=== PATIENT | male | born 1980 | race Caucasian/White ===

== ENCOUNTER 2017-02-12 16:28 | Emergency (ER) | payer SELFPAY ==
[2017-02-12 20:44] LABS: PLATELET COUNT 274 x10^3mcL (130-400); RED CELL DISTRIBUTION WIDTH 13.1 % (11.5-14.5)
[2017-02-12 20:53] LABS: CARBON DIOXIDE 23.9 mmol/L (21-32)
[2017-02-12 21:08] LABS: POTASSIUM SERUM 4.3 mmol/L (3.5-5.1)
[2017-02-12 21:50] LABS: microscopic required? YES; urine erythrocyte 2+ (NEGATIVE)
[2017-02-13 01:35] VITALS: BP 148/96
== END 2017-02-13 01:35 | disposition home or self-care (01) ==
LOC: ED 16:28
PROVIDERS: Emergency Medicine
DX: E11.65 Type 2 diabetes mellitus with hyperglycemia (principal); I10 Essential (primary) hypertension; R07.89 Other chest pain; R05 Cough; M54.5 Low back pain
CPT/HCPCS: 82962; 83880; J1885; J2405; J7030; Q0092

== ENCOUNTER 2018-08-19 19:00 | Emergency (ER) | payer SELFPAY ==
[~2018-08-19] VITALS: Ht 188 cm; Wt 134.3 kg
[2018-08-19 19:05] VITALS: Ht 188 cm; Wt 134.3 kg
[2018-08-19 20:57] VITALS: BP 141/75
== END 2018-08-19 20:57 | disposition home or self-care (01) ==
LOC: ED 19:00
DX: S93.402A Sprain of unspecified ligament of left ankle, initial encounter (principal); X58.XXXA Exposure to other specified factors, initial encounter; Y93.89 Activity, other specified; Y92.89 Other specified places as the place of occurrence of the external cause; Y99.8 Other external cause status
CPT/HCPCS: Q0092

== ENCOUNTER 2018-10-31 23:48 | Emergency (ER) | payer SELFPAY ==
[~2018-10-31] VITALS: Ht 188 cm; Wt 137.4 kg
[2018-10-31 23:52] VITALS: Ht 188 cm; Wt 137.4 kg
[2018-11-01 00:45] LABS: BASOPHIL % 0.4 % (0-2); PLATELET COUNT 286 x10^3mcL (130-400); RED CELL DISTRIBUTION WIDTH 13.7 % (11.5-14.5)
[2018-11-01 00:55] LABS: CALCIUM 9.4 mg/dL (8.5-10.1); CARBON DIOXIDE 24.6 mmol/L (21-32); CHLORIDE SERUM 103 mmol/L (98-107); CREATININE SERUM 0.8 mg/dL (0.7-1.3); GFR1 > 60 mL/min; GLUCOSE SERUM 206 mg/dL (74-106); POTASSIUM SERUM 3.7 mmol/L (3.5-5.1); SODIUM SERUM 140 mmol/L (136-145)
[2018-11-01 01:00] LABS: ALBUMIN 3.6 g/dL (3.4-5.0); ALKALINE PHOSPHATASE 100 U/L (46-116); ALT/SGPT 24 U/L (16-63); AST/SGOT 11 U/L (15-37); BILIRUBIN TOTAL 0.16 mg/dL (0.20-1.00); TOTAL PROTEIN, SERUM 7.6 g/dL (6.4-8.2); URIC ACID 4.6 mg/dL (3.5-7.2)
[2018-11-01 01:23] VITALS: BP 135/93
== END 2018-11-01 01:23 | disposition home or self-care (01) ==
LOC: ED 23:48
PROVIDERS: Emergency Medicine
DX: M10.9 Gout, unspecified (principal); I10 Essential (primary) hypertension; E11.9 Type 2 diabetes mellitus without complications
CPT/HCPCS: 36415; J1100; J1885

== ENCOUNTER 2018-12-05 11:18 | Emergency (ER) | payer SELFPAY ==
[~2018-12-05] VITALS: Ht 188 cm; Wt 137.0 kg
[2018-12-05 11:22] VITALS: Ht 188 cm; Wt 137.0 kg
[2018-12-05 13:31] VITALS: BP 169/94
== END 2018-12-05 13:31 | disposition home or self-care (01) ==
LOC: ED 11:18
DX: G43.909 Migraine, unspecified, not intractable, without status migrainosus (principal); I10 Essential (primary) hypertension; E11.9 Type 2 diabetes mellitus without complications
CPT/HCPCS: J1885; J2765; Q0162

== ENCOUNTER 2019-10-13 10:23 | Emergency (ER) | payer SELFPAY ==
[~2019-10-13] VITALS: Ht 188 cm; Wt 127.0 kg
[2019-10-13 10:38] VITALS: Ht 188 cm; Wt 127.0 kg
[2019-10-13 11:05] LABS: microscopic required? NO
[2019-10-13 11:14] LABS: CALCIUM 7.5 mg/dL (8.5-10.1); CARBON DIOXIDE 23.4 mmol/L (21-32); CHLORIDE SERUM 98 mmol/L (98-107); CREATININE SERUM 0.9 mg/dL (0.7-1.3); GFR1 > 60 mL/min; GLUCOSE SERUM 415 mg/dL (74-106); SODIUM SERUM 133 mmol/L (136-145)
[2019-10-13 11:27] LABS: ALKALINE PHOSPHATASE 133 U/L (46-116); BILIRUBIN TOTAL 0.6 mg/dL (0.20-1.00); LIPASE 205 IU/L (73-393); MAGNESIUM 1.9 mg/dL (1.8-2.4); T4(THYROXINE) 8.9 ug/dL (4.7-13.3)
[2019-10-13 11:29] LABS: ALBUMIN 3.3 g/dL (3.4-5.0)
[2019-10-13 11:30] LABS: CHOLESTEROL 297 mg/dL (<200); HDL CHOLESTEROL 27 mg/dL (40-60)
[2019-10-13 11:38] LABS: BASOPHIL % 0.4 % (0-2); PLATELET COUNT 282 x10^3mcL (130-400)
[2019-10-13 12:35] LABS: urine erythrocyte NEGATIVE (NEGATIVE)
[2019-10-13 13:39] LABS: AMPHETAMINE QUAL UR NONE DETECTED (See below)
[2019-10-13 14:14] VITALS: BP 135/85
[2019-10-13 14:36] LABS: TOTAL PROTEIN, SERUM 7.1 g/dL (6.4-8.2)
[2019-10-13 15:21] LABS: AST/SGOT 26 U/L (15-37)
[2019-10-13 15:53] LABS: ALT/SGPT 104 U/L (16-63)
== END 2019-10-13 14:14 | disposition home or self-care (01) ==
LOC: ED 10:23
PROVIDERS: Emergency Medicine
DX: F12.20 Cannabis dependence, uncomplicated (principal); E66.9 Obesity, unspecified; I10 Essential (primary) hypertension; E11.9 Type 2 diabetes mellitus without complications; G43.909 Migraine, unspecified, not intractable, without status migrainosus; Z68.35 Body mass index [BMI] 35.0-35.9, adult
CPT/HCPCS: 36415; 82962; J1815; Q0092